=== PATIENT | female | born 2000 | race Caucasian/White ===

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

== ENCOUNTER 2019-02-13 22:53 | Emergency (ER) | payer MEDICAID ==
[~2019-02-13] VITALS: Ht 162.6 cm; Wt 81.6 kg
[2019-02-13 23:02] VITALS: Ht 162.6 cm; Wt 81.6 kg
[2019-02-14 00:50] VITALS: BP 118/69
== END 2019-02-14 00:51 | disposition home or self-care (01) ==
LOC: ED 22:53
DX: G43.909 Migraine, unspecified, not intractable, without status migrainosus (principal); R11.2 Nausea with vomiting, unspecified; Z86.39 Personal history of other endocrine, nutritional and metabolic disease